=== PATIENT | female | born 2000 | race Caucasian/White ===

== ENCOUNTER 2022-08-11 18:11 | Outpatient (CLI) | payer BC, SELFPAY ==
[2022-08-11 18:19] VITALS: BP 110/68; PULSE 93; RESP 18; TEMP 36.9; O2SAT 98; BMI 24.2
[2022-08-11 20:29] LABS: Hematocrit 40.3 % (37.0-47.0); Hemoglobin 13.3 g/dL (11.5-15.3)
[2022-08-11 20:59] LABS: HCG Quantitative 71.59 mIU/mL
--- NOTE | 2022-08-11 21:50 | W.ED.PREGNAN ---
HPI - General: Chief complaint: Vaginal Bleeding Stated complaint: Vaginal Bleeding\ Time Seen by Provider: 08/11/22 21:50 History of Present Illness: Ms. Rose is a 22-year-old lady who presents to the emergency department due to vaginal bleeding with abdominal cramping in the context of positive test at home on Monday. Last menstrual period was July 05, typical period for her and has not had bleeding since. Given that her menstrual period was late she took multiple test at home that were positive. While at work she noticed blood in her underwear and subsequently has developed mild to moderate abdominal cramping with radiation to the back. No other specific changes in health, exacerbating, or alleviating factors identified. Onset (ago): hour(s) Location: pelvis Severity: moderate Quality: Cramping Relieving factors: none Exacerbating factors: none Vaginal discharge: none Vaginal bleeding: light and clots Date of Last Menstrual Period: 07/05/22 Patient : Yes OB History - Previous Pregnancies: miscarriage (Early ) Review of Systems General: Reports: 10 or more systems reviewed and unremarkable except in HPI and below PFSH ED PFSH: Medical History (Updated 08/12/22 @ 00:33 by Dmitriy Salomon MD) No significant past medical history Surgical History (Updated 08/11/22 @ 22:48 by Dmitriy Salomon MD) No significant past surgical history Female Reproductive History: Date of last menstrual period: 07/05/22 Physical Exam Const: COMMON NORMALS: alert GENERAL APPEARANCE: cooperative and well developed HENMT: COMMON NORMALS: normocephalic and atraumatic HEAD & SCALP: normocephalic and atraumatic Eye: COMMON NORMALS: conjunctivae normal CONJUNCTIVA: Yes conjunctivae normal SCLERA: sclerae normal Neck/C-Spine: COMMON NORMALS: supple GENERAL: Yes trachea midline Resp: COMMON NORMALS: normal respiratory effort EFFORT & INSPECTION: Yes able to speak in complete sentences Cardio: COMMON NORMALS: regular rate and regular rhythm RATE: regular rate RHYTHM: regular rhythm GI: COMMON NORMALS: Soft to palpation PALPATION: Yes Soft to palpation and No Tenderness to palpation present (GI) : OTHER: Pelvic exam performed with environmental compliance engineer present. There is small amount of clots and dark red blood at the introitus. Small amount of blood and clots noted within the vaginal vault without evidence of pooling. Cervix appears visually closed. Right greater than left adnexal tenderness on bimanual exam. No other abnormality identified. Extremity: GENERAL: Yes normal exam except as noted and No edema Neuro: COMMON NORMALS: moves all extremities SENSORIUM/ORIENTATION: Yes alert and No Orientation impaired Psych: COMMON NORMALS: mental status grossly normal and Normal thought process present THOUGHT PROCESS: Normal thought process present Course Vital Signs: Vital signs: Vital Signs Temperature 98.4 F 08/12/22 01:03 Pulse Rate 89 08/12/22 01:03 Respiratory Rate 18 08/12/22 01:03 Blood Pressure 112/74 08/12/22 01:03 Pulse Oximetry 98 08/12/22 01:03 Oxygen Delivery Me thod 08/11/22 18:19 MDM - OB/Uterine Contractions Medical Decision Making 22-year-old female presenting with vaginal bleeding and positive home test. Satisfactory vital signs and hemoglobin. Semi quantitate hCG is low however given LMP to be increasing. Given physical exam and ultrasound ordered without IUP identified which is correlate with hCG being below discriminatory zone. Patient also found to have bacterial vaginosis which will be treated. Discussed results of ED evaluation with patient including need for repeat beta hCG which will be ordered and recommended follow-up with obstetrics. Satisfactory for outpatient management. Medical Records I reviewed the patient's medical records. Lab Data I reviewed the patient's lab results. : 08/11/22 20:08 Radiology Impressions Transvaginal US 08/11/22 22:37 IMPRESSION: 1. No obvious intrauterine at this time. 2. Normal ovarian perfusion bilaterally with no torsion. 3. Serial quantitative hCGs and/or followup ultrasound may be helpful. Laboratory Results Hgb 13.3 g/dL (11.5-15.3) 08/11/22 20:08 Hct 40.3 % (37.0-47.0) 08/11/22 20:08 Ser , Semi-Qnt 31.97 mIU/mL 08/13/22 11:45 Blood Type O Positive 08/11/22 20:08 Rho(D) Type Positive 08/11/22 20:08 Discharge Plan Discharge Patient Disposition: Home Clinical Impression: Miscarriage, threatened, early , Bacterial vaginosis in Condition: Stable Discharge Orders: Discharge ED (Routine); Ordered 08/12/22 Ordered By: Dmitriy Salomon Discharge Diet: Usual diet Discharge Activity: Resume usual activity Coding Level of Care Code ED Fermenter Wine for Chg Fwd Exam Comprehensive
--- NOTE | 2022-08-11 22:37 | USR_ITS ---
PROCEDURE INFORMATION: Exam: US , Transvaginal Exam date and time: 08/11/2022 10:47 PM Age: 22 years old Clinical indication: Lmp or gestational age (in weeks): 5 w 2 d; ; Patient HX: Positive home test, C/O moderate vag bleed x 4 days. Bilateral pelvic cramping r>l; Additional info: Lmp 07/05, bleeding, pain, + home preg test, adnexal r>l LABS AND CLINICAL REPORTS: Serum Choriogonadotropin (HCG): 72 mIU/mL Last menstrual period start date: 07/05/2022 Gestational age (Established): 5 w 2 d Estimated due date (Established): 04/11/2023 TECHNIQUE: Imaging protocol: Real-time transvaginal obstetrical ultrasound of the maternal pelvis with image documentation. Transvaginal imaging was used for better evaluation of the fetus, adnexa, and/or cervix. COMPARISON: No relevant prior studies available. FINDINGS: MATERNAL: Uterus: Uterus measures 8.3 cm x 3.4 cm x 5 cm with estimated volume 73 cc.. 7 mm endometrial stripe. Retroflexed uterus. Right ovary/adnexa: Right ovary measures 2.8 cm x 3.4 cm x 5 cm. Right ovarian volume is 11.4 mL. Left ovary/adnexa: Left ovary measures 3.1 cm x 1.5 cm x 2.4 cm. Left ovarian volume is 5.8 mL. US/US OB transvaginal [id number] IMPRESSION: 1. No obvious intrauterine at this time. 2. Normal ovarian perfusion bilaterally with no torsion. 3. Serial quantitative hCGs and/or followup ultrasound may be helpful.
[2022-08-12] MEDS: metroNIDAZOLE 250 mg Tablet PO (01:02)
[2022-08-12 01:03] VITALS: BP 112/74; PULSE 89; RESP 18; TEMP 36.9; O2SAT 98
--- NOTE | 2022-08-12 11:29 | DCPLANNER ---
Addendum entered by Dolly Hanley 11/25/22 14:14: Patient had a follow up appointment scheduled with [facility] - patient did attend appointment Addendum entered by Dolly Hanley 08/17/22 15:04: Patient has a follow up appointment scheduled for August at 2:00 with [facility] Keyla Galvan. Clinic will call patient with appointment information. Original Note: manager life sciences had message to schedule a follow up appointment for patient with [facility]. manager life sciences sent patients information to the front office staff at [facility]. Patients information will be printed and reviewed. Clinic will call patient with appointment information.
[2022-08-13 12:12] LABS: HCG Quantitative 31.97 mIU/mL
== END 2022-08-13 11:38 | disposition home or self-care (01) ==
LOC: ER 08-12 00:33 → LAB 08-13 11:38
PROVIDERS: Emergency Provider Emergency Medicine; Visit Provider Emergency Medicine
DX: O20.0 Threatened abortion (principal); Z3A.01 Less than 8 weeks gestation of pregnancy
CPT/HCPCS: 76817; 84702; 85014; 85018; 86900; 87210; E0352

== ENCOUNTER → 2022-09-08 15:04 | Outpatient (BNVA) | payer BC, SELFPAY | PROVIDERS: Visit Provider Nurse Practitioner Women's Health | DX: O03.4 Incomplete spontaneous abortion without complication (principal); F32.A Depression, unspecified | CPT/HCPCS: 84702 ==

== ENCOUNTER 2023-12-18 03:39 | Outpatient (CLI) | payer MEDICAID, SELFPAY ==
[2023-12-18 03:50] VITALS: BP 134/85; PULSE 93; TEMP 36.2
[2023-12-18 04:03] VITALS: BMI 29.1
[2023-12-18 04:10] VITALS: BP 126/80; PULSE 83
[2023-12-18 04:30] VITALS: BP 126/83; PULSE 83; RESP 18
[2023-12-18 05:47] VITALS: BP 131/65; PULSE 82
--- NOTE | 2023-12-18 06:39 | PC.NURSE ---
Pt stated they were talking during their last contraction and couldn't rate it.
[2023-12-18 07:29] VITALS: BP 131/65; PULSE 82
== END 2023-12-18 07:25 | disposition home or self-care (01) ==
LOC: OPOB 03:40 → OBGYN 03:42
PROVIDERS: PCP Family Medicine; Visit Provider Family Medicine
DX: O26.899 Other specified pregnancy related conditions, unspecified trimester (principal); Z3A.00 Weeks of gestation of pregnancy not specified; R10.9 Unspecified abdominal pain
CPT/HCPCS: 59025; 99211

== ENCOUNTER 2024-01-01 14:33 | Inpatient (IN) | payer MEDICAID, SELFPAY ==
[2024-01-01] VITALS (34 sets, daily range): BP systolic 105–148; BP diastolic 57–94; PULSE 72–91; RESP 18; TEMP 36.4; BMI 29.4
[2024-01-01 12:45] LABS: Nitrazine Paper, PH Negative
[2024-01-01] MEDS: miSOPROStol 100 mcg tablet 25 MCG VAGINAL (15:06)
[2024-01-01 15:38] LABS: Basophils # 0.1 10^3/uL (0.0-0.1); Basophils % 0.5 %; Eosinophils # 0.1 10^3/uL (0.0-0.8); Eosinophils % 0.5 %; Hematocrit 38.2 % (36-47); Lymphocytes # 2.3 10^3/uL (0.8-4.8); Lymphocytes % 21.7 %; Mean Corpuscular HGB Conc 31.2 g/dL (30-55); Mean Corpuscular Hemoglobin 25.4 pg (27-33); Mean Corpuscular Volume 81.4 fl (85-98); Monocytes # 0.5 10^3/uL (0.2-0.9); Monocytes % 5.2 %; Neutrophils # 7.43 10^3/uL (1.8-7.7); Neutrophils % 71.4 %; Nucleated Red Blood Cells % 0 %; Platelet Count 339 10^3/cmm (157-399); Red Blood Count 4.69 10^6/uL (3.85-5.65); Red Cell Distribution Width 14.4 % (12.1-15.1); White Blood Count 10.39 10^3/uL (3.29-11.43)
--- NOTE | 2024-01-01 17:33 | PM.OPHPUD ---
Labor & Delivery H&P Update Date of Procedure: January 01, 2024 Date H&P Performed: 12/28/23 Changes to previous documentation: Isela every 2 to 5 minutes Admission Diagnosis: 23-year-old 2 para 0-0-1-0 at 40 weeks estimated gestational age with consistent contractions Primary indication for procedure: Augmentation of labor Planned procedure: Vaginal delivery Other information: The patient has had an unremarkable . Her labs been relatively unremarkable. Her blood type is O+ her antibody screen is negative she did not pass original glucose screen but passed her follow-up glucose screen she is rubella immune. She is GBS negative. The remainder of her infectious disease profile is within normal limits.
[2024-01-01] MEDS: fentaNYL 50 mcg/mL INJ 2mL IVP (18:27)
[2024-01-01] MEDS: dextrose 5%-lactated ringers 1,000 ML 125 ML IV (18:27)
[2024-01-01] MEDS: lactated ringers 1,000 ML 999 ML (19:21)
[2024-01-01] MEDS: ondansetron 2 mg/ML SDV 2 mL 4 MG IVP (20:13)
--- NOTE | 2024-01-01 22:00 | P.PCNOB_ITS ---
Delivery Note: Date of delivery: January 01, 2024 Pre-delivery diagnoses: 1. 23-year-old 2 para 0-0-1-0 a t 40 weeks estimated gestational age Post-delivery diagnoses: Status post spontaneous vaginal delivery Procedure: Spontaneous vaginal delivery Delivering Physician: Jacob Vazquez Estimated blood loss (mL): 150 Pre-Delivery Course: The patient presented to the hospital having contractions and a question of rupture membranes. Her membranes were found to be intact, but she continued to have consistent contractions. Due to her gestational age, we elected to augment her labor. She was placed on Cytotec 25 mcg x 1. She had spontaneous rupture membranes. She progressed to complete without difficulty. Delivery: DELIVERY: The patient progressed to complete without difficulty. She delivered a male with a weight of 7 pounds 7 ounces with Apgars of 8, 9. The baby was delivered from the BOBBY position and placed on the mother's abdomen. The cord was then clamped and cut. There was no nuchal cord. There was no meconium. The placenta and 3 vessel cord were delivered intact shortly thereafter. The perineum and vaginal vault were carefully examined. Superficial lacerations were noted on her left and right vaginal domingo. No repair was required.. Both the mother and the baby were in stable condition. Post-Delivery Status: Good History History History 1 Term 0 0 Miscarriages/Ectopic 1 Living Children 0 A&P Assessment and plan (1) Spontaneous vaginal delivery: I anticipate routine care. (2) 40 weeks gestation of : Coding Level of Care Code Acute Code for Chg Fwd Diagnoses Spontaneous vaginal delivery O80 40 weeks gestation of Z3A.40
[2024-01-02] VITALS (12 sets, daily range): BP systolic 123–135; BP diastolic 60–85; PULSE 63–144; RESP 16; TEMP 35.8–36.8
--- NOTE | 2024-01-02 07:53 | P.DS_ITS ---
Discharge Providers DISTANCE EDUCATION COORDINATOR Date of Admission: 01/01/24 14:33 Date of Discharge: 01/02/24 Attending Provider at Admission: Jacob Vazquez MD Attending Provider at Discharge: Jacob Vazquez MD Primary Care Provider: Jacob Vazquez MD Diagnoses at Discharge Discharge Diagnosis (1) Spontaneous vaginal delivery: Status: Acute (2) 40 weeks gestation of : Status: Acute Reason for Visit Reason for Visit: leaking fluid Hospital Course Hospital Course The patient presented to the hospital having consistent contractions. Her labor was augmented with Cytotec 25 mcg x 1. She progressed to complete and had an unremarkable delivery of a healthy male infant. Her course was unremarkable. Her bleeding was within normal limits. Her pain has been adequately controlled. There have been no concerns. Information Peripartum Data: Infant Delivery Method: Vaginal Physical Exam Narrative: The patient is alert. She appears comfortable. Her heart has a regular rate and rhythm with no murmurs appreciated. Lungs are clear to auscultation bilaterally. Her fundus is firm and below the umbilicus. History History History 1 Term 0 0 Miscarriages/Ectopic 1 Living Children 0 Discharge Data Studies Completed and Pending Pending at discharge Category Date Time Status Hemagram Timed Lab 01/02/24 09:59 Uncollected Laboratory Results WBC 10.39 10^3/uL (3.29-11.43) 01/01/24 14:25 RBC 4.69 10^6/uL (3.85-5.65) 01/01/24 14:25 Hgb 11.90 g/dL (11.27-16.99) 01/01/24 14:25 Hct 38.2 % (36-47) 01/01/24 14:25 MCV 81.4 fl (85-98) L 01/01/24 14:25 MCH 25.4 pg (27-33) L 01/01/24 14:25 MCHC 31.2 g/dL (30-55) 01/01/24 14:25 RDW 14.4 % (12.1-15.1) 01/01/24 14:25 Plt Count 339 10^3/cmm (157-399) 01/01/24 14:25 MPV 12.0 fL (7.4-10.4) H 01/01/24 14:25 Neut % (Auto) 71.4 % 01/01/24 14:25 Lymph % (Auto) 21.7 % 01/01/24 14:25 Mills % (Auto) 5.2 % 01/01/24 14:25 Eos % (Auto) 0.5 % 01/01/24 14:25 Baso % (Auto) 0.5 % 01/01/24 14:25 Neut # (Auto) 7.43 10^3/uL (1.8-7.7) 01/01/24 14:25 Lymph # (Auto) 2.3 10^3/uL (0.8-4.8) 01/01/24 14:25 Mills # (Auto) 0.5 10^3/uL (0.2-0.9) 01/01/24 14:25 Eos # (Auto) 0.1 10^3/uL (0.0-0.8) 01/01/24 14:25 Baso # (Auto) 0.1 10^3/uL (0.0-0.1) 01/01/24 14:25 Nucleated RBC % (auto) 0 % 01/01/24 14:25 Nucleated RBCs # 0.0 /100WBC 01/01/24 14:25 Fluid pH (paper) Negative 01/01/24 12:39 Vitals Last Vital Signs Temp 97.5 F L 01/01/24 11:23 Pulse 68 01/02/24 05:36 Resp 18 01/01/24 18:27 BP 128/72 01/02/24 05:36 O2 Del Method Room Air 01/01/24 14:52 Results Labs OB ([facility]): Blood Type O Positive 08/11/22 Hct 38.2 % (36-47) 01/01/24 Hgb 11.90 g/dL (11.27-16.99) 01/01/24 Rho(D) Type Positive 08/11/22 Plt Count 339 10^3/cmm (157-399) 01/01/24 Ser , Semi-Qnt 0.50 mIU/mL 09/08/22 Discharge Plan Discharge Patient Disposition: Home Condition: Stable Prescriptions: New ibuprofen 800 mg Tablet 800 mg PO TID Qty: 45 0RF -U 106.5-1 mg Capsule 1 cap PO DAILY Qty: 90 2RF Discharge Orders: Discharge Order (Routine); Ordered 01/02/24 Ordered By: Jacob Vazquez Referrals: Jacob Vazquez MD [Primary Care Provider] - 6 Weeks Discharge Diet: Usual diet Discharge Activity: Limit activity as instructed Patient Instructions: Opioid Safety Discharge Attestations DISTANCE EDUCATION COORDINATOR Time Spent in Discharge Care*: less than 30 min Coding Level of Care Code Acute Code for Chg Fwd Diagnoses Spontaneous vaginal delivery O80 40 weeks gestation of Z3A.40
[2024-01-02] MEDS: ibuprofen 800 mg tablet PO ×3 (09:08→21:50)
[2024-01-02] MEDS: docusate sodium 100 mg Capsule PO ×2 (09:08→21:50)
[2024-01-02] MEDS: prenatal vitamin Capsule 1 CAP PO (09:08)
[2024-01-02 10:05] LABS: Hematocrit 27.1 % (36-47); Mean Corpuscular HGB Conc 32.5 g/dL (30-55); Mean Corpuscular Hemoglobin 26.2 pg (27-33); Mean Corpuscular Volume 80.7 fl (85-98); Mean Platelet Volume 11.4 fL (7.4-10.4); Platelet Count 255 10^3/cmm (157-399); Red Blood Count 3.36 10^6/uL (3.85-5.65); Red Cell Distribution Width 14.2 % (12.1-15.1); White Blood Count 13.87 10^3/uL (3.29-11.43)
== END 2024-01-02 23:15 | disposition home or self-care (01) | DRG 807 ==
LOC: OPOB 17:21 → OBGYN 17:21
PROVIDERS: Admitting Provider Family Medicine; PCP Family Medicine; Visit Provider Family Medicine
DX: O80 Encounter for full-term uncomplicated delivery (principal); Z37.0 Single live birth; Z3A.40 40 weeks gestation of pregnancy
CPT/HCPCS: 36415; 59025; 59409; 83986; 85025; 85027; 96374; 99211; J2405; J3010; J7120; J7121